=== PATIENT | male | born 1985 | race Caucasian/White ===

== ENCOUNTER 2019-01-21 08:48 | Outpatient (RCR) | payer OTHER | END 2019-01-25 12:56 | disposition home or self-care (01) | LOC: WSOH 08:48 | DX: Z02.89 Encounter for other administrative examinations (principal) ==

== ENCOUNTER → 2021-11-22 | Outpatient (CLI) | payer OTHER | LOC: COL.RAD 13:06 | DX: M25.571 Pain in right ankle and joints of right foot (principal); M25.471 Effusion, right ankle ==